=== PATIENT | male | born 1945 | race Caucasian/White ===

== ENCOUNTER → 2017-03-02 | Outpatient (CLI) | payer OTHER ==
[~2017-03-02] MED LIST: AMLODIPINE; CLOPIDOGREL; LEVOTHYROXIN0.025 MG; LOPRESSOR; PROZAC40 MG; XANAX 0.25 MG0.25 MG; ZOCOR 20 MG TAB20 M1; ZOFRAN4 MG PO; [UNRECOGNIZED DRUG - OTHER]
[2017-03-02 10:25] LABS: CALCIUM 9.3 mg/dL (8.5-10.1); CREATININE 0.8 mg/dL (0.7-1.3); POTASSIUM 4.5 mmol/L (3.5-5.1)
== END ==
LOC: CAT 06:47
PROVIDERS: Internal Medicine Cardiovascular Disease
DX: I71.4 Abdominal aortic aneurysm, without rupture (principal); I77.9 Disorder of arteries and arterioles, unspecified

== ENCOUNTER → 2017-03-16 | Outpatient (CLI) | payer OTHER ==
[~2017-03-16] VITALS: Ht 172.7 cm; Wt 61.2 kg
[~2017-03-16] MED LIST changes: +ASPIR 8181 MG PO; +ASPIRIN325 PO; +LEVOTHYROXINE 0.15MG PO; +LOPRESSOR25 PO; +NORCO 5-325 TA1 EACH PO; +NORVASC10 MG PO; +PLAVIX 75 MG TA75 M1 PO; -PROZAC40 MG; +PROZAC40 MG PO; +TOPROL XL25 MG PO; -XANAX 0.25 MG0.25 MG; +XANAX 0.25 MG0.25 MG PO; +ZOCOR20 MG PO
[2017-03-16 07:45] VITALS: BP 138/65
[2017-03-16 08:00] LABS: HEMATOCRIT 39.4 % (42.0-52.0); HEMOGLOBIN 13.1 gm/dL (14.0-18.0); MCH 32.2 pg (26.0-34.0); MCHC 33.1 g/dL (28.0-37.0); RBC 4.06 mil/uL (4.50-6.00); RDW 14.4 % (10.5-14.5); WBC 8.7 thou/uL (4.0-11.0)
[2017-03-16 08:08] LABS: CALCIUM 9.3 mg/dL (8.5-10.1); POTASSIUM 3.3 mmol/L (3.5-5.1)
== END ==
LOC: CATH 07:18
PROVIDERS: Internal Medicine Cardiovascular Disease
DX: I71.4 Abdominal aortic aneurysm, without rupture (principal); I12.9 Hypertensive chronic kidney disease with stage 1 through stage 4 chronic kidney disease, or unspecified chronic kidney disease; N18.9 Chronic kidney disease, unspecified; I25.10 Atherosclerotic heart disease of native coronary artery without angina pectoris; E03.8 Other specified hypothyroidism; I73.89 Other specified peripheral vascular diseases; Z86.12 Personal history of poliomyelitis; F17.210 Nicotine dependence, cigarettes, uncomplicated; Z86.73 Personal history of transient ischemic attack (TIA), and cerebral infarction without residual deficits; Z98.890 Other specified postprocedural states

== ENCOUNTER 2017-04-06 05:41 | Inpatient (IN) | payer OTHER ==
[2017-03-31 10:21] LABS: URINE BILIRUBIN NEGATIVE (Negative); URINE BLOOD NEGATIVE (Negative); URINE COLOR YELLOW; URINE GLUCOSE-RANDOM* NEGATIVE (Negative); URINE KETONES NEGATIVE (Negative); URINE LEUKOCYTES-REFLEX NEGATIVE (Negative); URINE PROTEIN (DIPSTICK) NEGATIVE (Negative); URINE UROBILINOGEN 0.2 E.U./dl (0.2-1.0)
[2017-03-31 10:25] LABS: HEMATOCRIT 42.2 % (42.0-52.0); MCH 32.1 pg (26.0-34.0); MCHC 33.1 g/dL (28.0-37.0); RBC 4.35 mil/uL (4.50-6.00); RDW 14.3 % (10.5-14.5); WBC 9.3 thou/uL (4.0-11.0)
[2017-03-31 10:38] LABS: APTT 27.9 Seconds (24.5-32.8); PROTIME 10.5 Seconds (9.3-11.4)
[2017-03-31 10:43] LABS: ALBUMIN 3.9 g/dL (3.4-5.0); CALCIUM 9.4 mg/dL (8.5-10.1); CREATININE 1.3 mg/dL (0.7-1.3); POTASSIUM 4.8 mmol/L (3.5-5.1); TOTAL BILIRUBIN 0.3 mg/dL (<0.1-1.0); TOTAL PROTEIN 7.6 g/dL (6.4-8.2)
[~2017-04-06] VITALS: Ht 172.7 cm; Wt 62.2 kg
[~2017-04-06 05:41] MED LIST changes: -LOPRESSOR25 PO; -NORCO 5-325 TA1 EACH PO
[2017-04-06 11:29] VITALS: BP 134/61
[2017-04-06 17:15] VITALS: BP 117/71
[2017-04-06 19:31] VITALS: BP 115/71
[2017-04-06 23:23] VITALS: BP 118/76
[2017-04-07 03:54] VITALS: BP 117/76
[2017-04-07 03:54] LABS: HEMATOCRIT 35.2 % (42.0-52.0); HEMOGLOBIN 11.7 gm/dL (14.0-18.0)
[2017-04-07 04:00] LABS: CALCIUM 8.6 mg/dL (8.5-10.1); POTASSIUM 5.2 mmol/L (3.5-5.1)
[2017-04-07 07:44] VITALS: BP 96/60
[2017-04-07 12:12] VITALS: BP 108/70
[2017-04-07] MEDS ORDERED: LOPRESSOR25 PO (12:59)
[2017-04-07 13:21] VITALS: BP 108/70
[2017-04-07] MEDS ORDERED: NORCO 5-325 TA1 EACH PO (13:35)
[2017-04-07 16:22] VITALS: BP 132/77
== END 2017-04-07 19:00 | disposition home or self-care (01) | DRG 301 ==
LOC: 2N 05:41 → TBA 05:41 → PRE 06:31 → 2N 17:14
PROVIDERS: Nurse Practitioner; Thoracic Surgery (Cardiothoracic Vascular Surgery)
PROC: 04JY3ZZ Inspection of Lower Artery, Percutaneous Approach (ICD-10-PCS; principal; 2017-04-06)
PROC: 4A133J1 Monitoring of Arterial Pulse, Peripheral, Percutaneous Approach (ICD-10-PCS; 2017-04-06)
PROC: 4A133B1 Monitoring of Arterial Pressure, Peripheral, Percutaneous Approach (ICD-10-PCS; 2017-04-06)
PROC: 03HY32Z Insertion of Monitoring Device into Upper Artery, Percutaneous Approach (ICD-10-PCS; 2017-04-06)
DX: I71.4 Abdominal aortic aneurysm, without rupture (principal); I10 Essential (primary) hypertension; I73.9 Peripheral vascular disease, unspecified; E78.5 Hyperlipidemia, unspecified; I65.29 Occlusion and stenosis of unspecified carotid artery; I25.10 Atherosclerotic heart disease of native coronary artery without angina pectoris; E03.9 Hypothyroidism, unspecified; Z86.73 Personal history of transient ischemic attack (TIA), and cerebral infarction without residual deficits; Z79.899 Other long term (current) drug therapy
CPT/HCPCS: 10081; 47375; 48888; 50010; 50101; 50386; 50455; 54118; 56524; 56526; 56527; 56531; 56668; 56760; 57093; 62110; 62900; 70005

== ENCOUNTER 2017-04-25 06:31 | Inpatient (IN) | payer OTHER ==
[~2017-04-25] VITALS: Ht 172.7 cm; Wt 69.0 kg
--- NOTE | ~2017-04-25 | O ---
[facility] [address] OPERATIVE REPORT Name: YRN DECKER Room #: 242-P ADM IN M.R.#: [id number] Admission: 04/25/17 Attend Phys: Rip Severino MD Discharge: Date of : 49 Report #: [id number] THIS REPORT FOR: //name// CC: Aleksandr Crawford MD [facility] Rip Severino DATE OF SERVICE: 04/25/2017 PREOPERATIVE DIAGNOSIS: Abdominal aortic aneurysm infrarenal. FINAL DIAGNOSES: Abdominal aortic aneurysm infrarenal and left iliofemoral artery occlusive disease. OPERATIVE PROCEDURE PERFORMED: 1. Open repair of infrarenal abdominal aortic aneurysm with 18 x 9 mm bifurcated Dacron graft utilizing a left aortofem and a right aortoiliac configuration. 2. Left common femoral artery endarterectomy. SURGEON: Rip Severino M.D. CHANNEL EXECUTIVE: Taya Alamo MD ANESTHESIA: General. OPERATIVE INDICATIONS: The patient is a 72-year-old gentleman who has recently presented with an asymptomatic abdominal aortic aneurysm greater than 5 cm in size. Approximately 3 weeks ago, we attempted to perform endovascular AAA repair; however, we were unable to pass sheaths up the femoral arteries. He is readmitted this time now and is brought to the operating room for abdominal aortic aneurysm repair. It should be noted the patient preoperatively did not complain of any symptoms of lower extremity claudication nor rest pain. OPERATIVE SUMMARY: The patient was brought to the operating room and placed on the OR table in supine position. After anesthesia was induced via the general endotracheal route and monitoring lines have been positioned, the patient was prepped and draped in sterile fashion with chlorhexidine. We made a midline celiotomy incision. We explored the abdominal cavity, ensured the NG tube was in the stomach, and palpated the liver until no masses. The gallbladder appeared to be normal. We mobilized the ligament of Treitz and then incised the retroperitoneum to expose the aneurysm. Appropriate retractors were replaced. We dissected around the common iliac vessels of both left and right side and controlled them with umbilical tapes. We then dissected the proximal neck and controlled it with an umbilical tape as well. We then gave 10,000 units of intravenous heparin. We clamped the iliac vessels and then the aorta just below [address] [address] OPERATIVE REPORT Name: YRN DEKCER EFREN Room #: 242-P [facility] IN .R.#: [id number] Admission: 04/25/17 Attend Phys: Rip Severino MD Discharge: Date of : 49 Report #: [id number] the renal arteries. The aneurysm was incised and an extensive mural thrombus was removed. We teed the aneurysm off close to the clamp on the aorta and we extended the incision distally to both of the iliac vessels. Extensive atherosclerotic plaque was present in these vessels as well as vessel wall calcification was quite extensive. We measured the graft size and selected 18 x 9 mm bifurcated graft. We cut it to the appropriate length and we sewed our proximal anastomosis with a 3-0 Prolene. Upon releasing the clamp, we placed several additional sutures to obtain hemostasis. There was a proximal lumbar vessel near the anastomosis that required several sutures for ligation. We then brought the graft down, measured it and cut the iliac limbs. We first performed our anastomosis to the right common iliac artery and this was done with 4-0 Prolene. We flushed this site and then de-aired it by back bleeding the iliac artery and then completed this anastomosis and reestablished flow to the right leg. No additional sutures were required and there was a very good Doppler signal present in the distal iliac artery. Next, we approached the left common iliac artery. This one was more heavily calcified and diseased. We performed a local endarterectomy at this site and we did achieve acceptable back bleeding and we performed this anastomosis. We again flushed the side both retrograde and antegrade and de-aired it and then allow flow down the left limb of the graft. We were unable to achieve a good Doppler signal in the distal iliac artery. No palpable femoral pulse was noted either. We had given protamine to reverse the heparin. We then proceeded with exposure of the left common femoral artery. We made an oblique incision over the old incision site from 3 weeks prior. We dissected down through dense tissue to reach the contents of the femoral sheath. We were able to expose the common femoral artery without injuring it. We identified the profunda femoral and the superficial femoral as well. We created a tunnel with blunt dissection and placed a separate piece of 9 mm graft into the tunnel. We then re-heparinized, we clamped the left limb of the aortobiiliac graft and then clamped the common iliac artery. We took down this old anastomosis and constructed a new anastomosis of a 9 mm graft to 9 mm graft using 4-0 Prolene. We oversewed the common iliac artery and tied it off with several 2-0 Prolene sutures. Once we established good flow to the groin site, we then opened up the common femoral artery. There was difficulty finding the lumen. We did perform a formal endarterectomy at this site. Lastly, we constructed the anastomosis of the 9 mm graft to the common femoral artery using 5-0 Prolene. Prior to completion, the site was flushed both retrograde and antegrade and de-aired by removing the distal clamp. We then completed the anastomosis and restored blood flow to the left leg. Good Doppler signals were present in the superficial femoral and profunda femoral arteries. Protamine was again given to reverse the heparin. We turned our attention back to the abdomen and obtained good hemostasis. We closed the aneurysm sac over the graft with #1 Vicryl. We closed the retroperitoneum with #1 Vicryl. We placed the intestinal contents, which looked to be in good health back into their anatomic position, cover them with the omentum and then closed the fascia with a #1 looped PDS. Subcutaneous tissues were irrigated and the skin was closed with a 4-0 Monocryl. The groin wound site was irrigated with saline solution and was closed in [address] [address] OPERATIVE REPORT Name: YRN DECKER Room #: 242-P [facility] IN ..#: [id number] Admission: 04/25/17 Attend Phys: Rip Severino MD Discharge: Date of : 49 Report #: [id number] multiple layers with absorbable suture. The procedure was completed. The patient was taken to the ICU in stable condition. The operative blood loss was approximately 850 mL, a portion of which was returned via the use of Cell Saver. <ELECTRONICALLY SIGNED> By: Rip Severino MD 04/26/17 0805 1733 1832 Rip Severino MD /glen
--- NOTE | ~2017-04-25 | S ---
[facility] [place] [address] SURGICAL PATH RPT PROCEDURE Name: YRN DECKER Room #: 211-P ADM IN M.R.#: [id number] Admission: 04/25/17 Date of : 49 Discharge: Report #: [id number] Path Case #: [id number] PATHOLOGY REPORT COLLECTION DATE: 04/26/2017 RECEIVED DATE: 04/26/2017 SUBMITTING PHYS: Dr. Rip Severino OTHER PHYS: Dr. Taya Alamo M.D. Dr. Aleksandr Velarde SPECIMEN(S) RECEIVED: A.Segment abdominal aorta * * * * * * * * * * * * FINAL DIAGNOSIS: Aorta, segment abdominal aorta, repair: - Calcification as well as fibrinoid degeneration, history of abdominal aortic aneurysm. (IUV:sylvie; 04/28/2017) PATHOLOGIST: Elise Guthrie M.D. REPORT ELECTRONICALLY SIGNED BY: Elise Guthrie M.D. DATE/TIME: 04/28/2017 15:40 * * * * * * * * * * * * GROSS PATHOLOGY: The specimen is received in formalin labeled "Yrn Decker, segment abdominal aorta". Received is a segment of light mandujano to dusky collier-mandujano friable possible vascular tissue measuring 6.7 x 4.5 x 2.8 cm in greatest dimensions. The specimen is submitted representatively in cassette A1. (CAA; 04/27/2017) CLINICAL HISTORY: AAA INITIAL CPT CODE(S): A; 94181 Professional services performed by [facility] at [facility] [address] [place] [address] Technical services performed by [facility] at [address] [place] [id number]. [facility] [address] [place] [address] SURGICAL PATH RPT PROCEDURE Name: YRN DECKER Room #: 211-P ADM IN M.R.#: [id number] Admission: 04/25/17 Date of : 49 Discharge: Report #: [id number] Path Case #: [id number] [address] PHONE: [phone] DIRECTOR: Neto Reinoso M.D. * * * END OF REPORT * * *
[~2017-04-25 06:31] MED LIST changes: +LOPRESSOR25 PO; +NORCO 5-325 TA1 EACH PO
[2017-04-25 11:52] VITALS: BP 138/71
[2017-04-25 16:16] LABS: POC BE -3 mmol/L (-2.0 to +3.0); POC CA IONIZED 4.5 mg/dL (4.5-5.3); POC FiO2 100 %; POC GLUCOSE 123 mg/dL (70-99); POC HCO3 23.8 mmol/L (22.0-26.0); POC HEMOGLOBIN 7.1 g/dL (14.0-18.0); POC POTASSIUM 3.4 mmol/L (3.5-5.1); POC SODIUM 143 mmol/L (136-145); POC pCO2 53.3 mmHg (35.0-45.0); POC pH 7.257 (7.360-7.450)
[2017-04-25 16:17] LABS: POC BE -2 mmol/L (-2.0 to +3.0); POC CA IONIZED 4.2 mg/dL (4.5-5.3); POC FiO2 100 %; POC GLUCOSE 154 mg/dL (70-99); POC HCO3 24.5 mmol/L (22.0-26.0); POC HEMOGLOBIN 11.6 g/dL (14.0-18.0); POC POTASSIUM 3.7 mmol/L (3.5-5.1); POC SODIUM 144 mmol/L (136-145); POC pCO2 54.1 mmHg (35.0-45.0); POC pH 7.264 (7.360-7.450)
[2017-04-25 16:46] LABS: ABG SAMPLE TYPE ARTERIAL; BE(vivo) -3.8 mmol/L (-2 to +3); HCO3 23.7 mmol/L (22.0-26.0); LACTATE 1.89 mmol/L (0.5-2.0); O2Hb 97.2 % (92.0-98.0); PCO2 54.2 mmHg (35.0-45.0); PO2 135.6 mmHg (80.0-100.0); STICK SITE LINE; pH 7.259 (7.360-7.450); sO2 98.3 % (92.0-98.0); tCO2 25.4 mmol/L (24.0-30.0)
[2017-04-25 16:47] LABS: TIDAL VOLUME 550 ml
[2017-04-25 19:16] LABS: ABG SAMPLE TYPE ARTERIAL; BE(vivo) -2.5 mmol/L (-2 to +3); HCO3 21.9 mmol/L (22.0-26.0); LACTATE 1.02 mmol/L (0.5-2.0); O2(CT) 15.7 mL/dL (15.0-23.0); PCO2 36.5 mmHg (35.0-45.0); PO2 224.9 mmHg (80.0-100.0); Pressure Support 8 cm H20; STICK SITE LINE; pH 7.396 (7.360-7.450); sO2 99.5 % (92.0-98.0)
[2017-04-25 20:08] LABS: ABG SAMPLE TYPE ARTERIAL; BE(vivo) -3.6 mmol/L (-2 to +3); Face Shield 50 %; HCO3 22.5 mmol/L (22.0-26.0); LACTATE 0.91 mmol/L (0.5-2.0); O2(CT) 15.7 mL/dL (15.0-23.0); O2Hb 96.6 % (92.0-98.0); PCO2 44.9 mmHg (35.0-45.0); PO2 114.9 mmHg (80.0-100.0); STICK SITE LINE; pH 7.318 (7.360-7.450); sO2 97.9 % (92.0-98.0); tCO2 23.9 mmol/L (24.0-30.0)
[2017-04-26 05:18] LABS: HEMATOCRIT 29.5 % (42.0-52.0); HEMOGLOBIN 10.3 gm/dL (14.0-18.0); MCH 32.8 pg (26.0-34.0); MCHC 34.9 g/dL (28.0-37.0); MCV 93.8 fL (80.0-100.0); RBC 3.14 mil/uL (4.50-6.00); WBC 8.8 thou/uL (4.0-11.0)
[2017-04-26 05:26] LABS: CALCIUM 7.3 mg/dL (8.5-10.1); CREATININE 0.8 mg/dL (0.7-1.3); MAGNESIUM 1.3 mg/dL (1.8-2.4); POTASSIUM 4.2 mmol/L (3.5-5.1)
[2017-04-26 15:30] VITALS: BP 83/54
[2017-04-26 19:51] VITALS: BP 91/55
[2017-04-26 23:35] VITALS: BP 109/66
[2017-04-27 04:10] VITALS: BP 174/85
[2017-04-27 07:45] VITALS: BP 140/79
[2017-04-27 11:47] VITALS: BP 153/92
[2017-04-27 15:14] VITALS: BP 161/90
[2017-04-27 19:33] VITALS: BP 167/90
[2017-04-28 03:16] VITALS: BP 159/88
[2017-04-28 06:09] LABS: HEMATOCRIT 35.2 % (42.0-52.0); HEMOGLOBIN 11.6 gm/dL (14.0-18.0)
[2017-04-28 06:21] LABS: CREATININE 0.9 mg/dL (0.7-1.3); POTASSIUM 3.5 mmol/L (3.5-5.1)
[2017-04-28 08:18] VITALS: BP 162/97
[2017-04-28 15:42] LABS: URINE BILIRUBIN NEGATIVE (Negative); URINE BLOOD 1+ (Negative); URINE COLOR YELLOW; URINE GLUCOSE-RANDOM* NEGATIVE (Negative); URINE KETONES 1+ (Negative); URINE LEUKOCYTES-REFLEX NEGATIVE (Negative); URINE PROTEIN (DIPSTICK) NEGATIVE (Negative); URINE SPECIFIC GRAVITY <= 1.005 (1.003-1.035); URINE UROBILINOGEN 0.2 E.U./dl (0.2-1.0)
[2017-04-28 15:54] LABS: CASTS None Seen /LPF (None Seen); CRYSTALS None Seen /LPF (None Seen); SQUAMOUS None Seen /LPF (0-3); URINE RBC 0-2 Rare /HPF (0-2); URINE WBC-REFLEX None Seen /HPF (0-5)
[2017-04-28 19:22] VITALS: BP 154/100
[2017-04-29 04:13] VITALS: BP 153/90
[2017-04-29 07:53] VITALS: BP 150/94
[2017-04-29 12:01] VITALS: BP 150/94
[2017-04-29 16:10] VITALS: BP 135/73
[2017-04-29 19:47] VITALS: BP 147/96
[2017-04-30 03:44] VITALS: BP 138/88
[2017-04-30 07:25] VITALS: BP 138/96
[2017-04-30 15:50] VITALS: BP 150/94
[2017-04-30 16:05] VITALS: BP 150/94
== END 2017-04-30 12:54 | disposition home health service (06) | DRG 269 ==
LOC: TBA 06:31 → ICU 06:31 → PRE 09:25 → ICU 16:36 → 2N 04-26 15:38
PROVIDERS: Internal Medicine Cardiovascular Disease; Nurse Practitioner; Thoracic Surgery (Cardiothoracic Vascular Surgery)
PROC: 04V03D6 (ICD-10-PCS; principal; 2017-04-25)
PROC: 04CL0ZZ Extirpation of Matter from Left Femoral Artery, Open Approach (ICD-10-PCS; 2017-04-25)
PROC: 30233N1 Transfusion of Nonautologous Red Blood Cells into Peripheral Vein, Percutaneous Approach (ICD-10-PCS; 2017-04-25)
PROC: 5A1935Z Respiratory Ventilation, Less than 24 Consecutive Hours (ICD-10-PCS; 2017-04-25)
DX: I71.4 Abdominal aortic aneurysm, without rupture (principal); I74.5 Embolism and thrombosis of iliac artery; I74.8 Embolism and thrombosis of other arteries; I25.10 Atherosclerotic heart disease of native coronary artery without angina pectoris; I10 Essential (primary) hypertension; E78.5 Hyperlipidemia, unspecified; E03.9 Hypothyroidism, unspecified; E78.00 Pure hypercholesterolemia, unspecified; E83.42 Hypomagnesemia; F41.9 Anxiety disorder, unspecified; F32.9 Major depressive disorder, single episode, unspecified; Z90.49 Acquired absence of other specified parts of digestive tract; Z71.6 Tobacco abuse counseling; Z91.09 Other allergy status, other than to drugs and biological substances
CPT/HCPCS: 10078; 10081; 48888; 50101; 50386; 50455; 51301; 52095; 54118; 56524; 56525; 56526; 56527; 56528; 56529; 57092; 57093; 62110; 62900; 65002; 65020; 65043; 65075; 65090; 65120; 83006

== ENCOUNTER 2017-10-10 06:32 | Observation (INO) | payer OTHER, SELFPAY ==
[~2017-10-10] VITALS: Ht 172.7 cm; Wt 66.0 kg
--- NOTE | ~2017-10-10 | EKG ---
[address] [address] ELECTROCARDIOGRAM REPORT Name: YRN DECKER Room #: REG Juan Ordonez#: [id number] Admission: 10/10/17 Attend Phys: Maksim Crawford MD, Discharge: Date of : 49 Report #: [id number] THIS REPORT FOR: //name// [facility] Test Date: 2017-10-10 Test Time: 12:48:19 Pat Name: YRN DECKER Department: Room: Gender: Seafood Team Member: Toby RIDDLE : 1945 Requested By: Maksim Crawford Order Number: [id number] MD: Pk Maldonado Measurements Intervals [place] Rate: 49 P: 31 [place]: 190 QRS: -58 QRSD: 102 T: 34 QT: 443 QTc: 400 Interpretive Statements Sinus bradycardia Left anterior fascicular block Compared to ECG 10/10/2017 07:11:55 Left anterior fascicular block now present Left-axis deviation no longer present Electronically Signed On 10-10-2017 14:04:31 ORDER CLERK by Pk Maldonado [email or web address] <ELECTRONICALLY SIGNED> By: Pk Maldonado MD 10/10/17 1404 1248 1248 Pk Maldonado MD /EPI
--- NOTE | ~2017-10-10 | EKG ---
[address] [address] ELECTROCARDIOGRAM REPORT Name: JERONIMOYRN EFREN Room #: 200-I [facility] M.R.#: [id number] Admission: 10/10/17 Attend Phys: Maksim Crawford MD, Discharge: Date of : 49 Report #: [id number] THIS REPORT FOR: //name// [facility] Test Date: 2017-10-11 Test Time: 06:02:22 Pat Name: YRN DECKER Department: Room: 200 I Gender: M Family Court Justice: GRq : 1945 Requested By: Maksim Crawford Order Number: [id number] MD: kP Maldonado Measurements Intervals [place] Rate: 48 P: 50 [place]: 195 QRS: -48 QRSD: 100 T: 49 QT: 439 QTc: 393 Interpretive Statements Sinus bradycardia Left anterior fascicular block Compared to ECG 10/10/2017 16:05:31 No significant changes Electronically Signed On 10-11-2017 7:49:03 COMPOSITION BOARD PRESS OPERATOR by Pk Maldonado [email or web address] <ELECTRONICALLY SIGNED> By: Pk Maldonado MD 10/11/17 0749 1 1 Pk Maldonado MD /DOREEN
--- NOTE | ~2017-10-10 | EKG ---
[place] [address] [facility] [place] [address] ELECTROCARDIOGRAM REPORT Name: YRN DECKER [id number] Admission: 10/10/17 Attend Phys: Maksim Crawford MD, Discharge: Date of : 49 Report #: [id number] THIS REPORT FOR: //name// [facility] Test Date: 2017-10-10 Test Time: 07:11:55 Pat Name: YRN DECKER Department: Room: Gender: Business Performance Analyst: Toby RIDDLE : 1945 Requested By: Maksim Crawford Order Number: [id number] MD: Leodan Cordero Measurements Intervals [employer] Rate: 44 P: 9 RI: 196 QRS: -38 QRSD: 104 T: 43 QT: 466 QTc: 399 Interpretive Statements Sinus bradycardia Probable left atrial enlargement Left axis deviation Compared to ECG 08/22/2011 18:43:09 Septal Q waves are no longer present Electronically Signed On 10-10-2017 7:54:55 FILLING CARRIER by Leodan Cordero [email or web address] <ELECTRONICALLY SIGNED> By: Leodan Cordero MD, [facility] 10/10/17 0754 0711 07 Leodan Cordero MD, [facility] /EPI
--- NOTE | ~2017-10-10 | D ---
[facility] [place] [address] DISCHARGE SUMMARY Name: YRN DECKER Room #: 200-I [facility] Abisai Ordonez#: [id number] Admission: 10/10/17 Attend Phys: Maksim Crawford MD, Discharge: 10/11/17 Date of : 49 Report #: [id number] THIS REPORT FOR: //name// CC: Aleksandr Crawford [facility] COURSE: A 72-year-old male admitted for cardiac catheterization and presumed intervention to the right coronary artery. He had been lost to followup with some accelerating anginal symptoms. Subsequently taken to the catheterization lab. The left system was mildly diseased. The RCA had an eccentric 80-90% proximal lesion. This was a dominant vessel and then the distal RCA ostial PDA lesion was also 90%. I placed a 3.0 x 15 medicated stent in the proximal RCA and postdilated to 3.3 mm. The distal stent was a 2.25 x 12 and that was post-dilated to 2.5. He tolerated this well without any hemodynamic compromise. He has done well postoperatively. He had renal arteries, which were previously stented and were widely patent. It was difficult to ____ significantly calcified femoral artery, but no groin hematoma. He is up and ambulating and doing well. His laboratory work, creatinine is 1.3, his H and H are 11.2 and 33.4. His troponin was 0.1 and not significant. He is doing well. He will be discharged to home. No lifting for 48 hours. No lying in tub, Jacuzzi or chin for a week. No MRI or dental work for 3 months. DISCHARGE MEDICATIONS: Full aspirin with clopidogrel 75 mg a day for 1 month and then decrease to a baby aspirin, albuterol, Colace as needed, atorvastatin, Flomax, Lopressor 25 b.i.d., Zoloft 50 mg a day, Xanax 0.25 p.r.n. and Ambien 5 mg at night p.r.n. Amlodipine will be held, we will discontinue him on the valsartan and we will discontinue the Norvasc. DISCHARGE DIAGNOSES: 1. Coronary artery disease, successful stent placement dominant right and successful placement to the ostial PDA, preserved LV function. 2. Hypertension. 3. Hypercholesterolemia. 4. Chronic obstructive pulmonary disease. 5. Anxiety. Thank you for asking me to assist in the care of this patient. <ELECTRONICALLY SIGNED> By: Maksim Crawford MD, [facility] 10/20/17 2136 0829 0903 Maksim Crawford MD, FAC /nt
--- NOTE | ~2017-10-10 | CATHLAB ---
[facility] [place] [address] INVASIVE PROCEDURE REPORT Name: YRN DECKER Room #: 200-I [facility] IN .R.#: [id number] Admission: 10/10/17 Attend Phys: Maksim Crawford, Discharge: 10/11/17 Date of : 49 Date of Service: 10/12/17 0153 Report #: [id number] THIS REPORT FOR: //name// APPROVED REPORT Patient Details Patient Status: Out-Patient Room #: The patient is a 72 year-old male Event Personnel Maksim Crawford Signal Operator Technical, Raghu Brewster RN, Serene Tapia Sandifer, David Monitor, Yogesh Sauceda RN tin can feeder Performed Left Heart Cath w/or w/o Coronaries [id number] [facility] Renal Bilateral Peripheral Angiography 3925273 CVRENALBIL ALYSHA Place w/wo Plasty Single PDA 167798 72611 Initial Mod Sed Same Phys/QHP Gr5y 864064 93965 Mod Sed Same Phys/QHP Ea 461508 Procedure Narrative The patient was brought electively to the Cardiac Catheterization Laboratory and was prepped and draped in a sterile manner. The Right Groin^ was infiltrated with 1% Lidocaine subcutaneous anesthesia. A PINNACLE 6FR Sheath #[id number] sheath was inserted into the RFA^. Coronary angiography was performed using coronary diagnostic catheters. The right coronary system was accessed and visualized with a JR 4 catheter. The left coronary system was accessed and visualized with a JL 4 catheter. The left ventricle was accessed and visualized with a Pigtail catheter. Left ventriculogram was performed in RAYA projection. Hemostasis was obtained with manual pressure following sheath removal without any complications. The patient tolerated the procedure well and there were no complications associated with the procedure. There was no hematoma. Intraoperative Conscious Sedation Sedation start time: 08:24 Case end Time: 09:29 Fentanyl 75.0 mcg Versed 2.0 mg Fluoro Time: 980.00 minutes Dose: 980 mGy Contrast Type and Amount: Visipaque 135 ml Hemodynamics [facility] [address] [address] INVASIVE PROCEDURE REPORT Name: YRN DECKER Room #: 200-I [facility] IN ..#: [id number] Admission: 10/10/17 Attend Phys: Maksim Crawford, Discharge: 10/11/17 Date of : 49 Date of Service: 10/12/17 0153 Report #: [id number] The aortic pressure is 147/71 mmHg with a mean of 99 mmHg. The left ventricular pressure is 145/-15 mmHg with a mean of mmHg. The left ventricular end diastolic pressure is 49 mmHg. PCI Technique Lesion Anticoagulation was achieved with Heparin. Percutaneous coronary intervention was performed on the proximal right coronary artery. A LAUNCHER 6FR BAM #[id number] Guide Catheter was used to engage the ostium. A Luge Wire .014 x 182CM #[id number] Interventional Guidewire was used to cross the lesion. BALLOON DILATION A Balloon catheter Sprinter OTW 2.5 x 15 #[id number] was inserted and inflated up to 14.00atm for 28seconds. STENT DEPLOYMENT A drug-eluting stent RESOLUTE OTW 3.0 X 15 #[id number] was inserted and inflated up to 14.00atm for 33seconds. Additional Inflation: 20.00atm for 26seconds. PCI Technique Lesion 2 Percutaneous Coronary Intervention was performed on the right posterior descending artery. A LAUNCHER 6FR BAM #[id number] Guide Catheter was used to engage the ostium. A Luge Wire .014 x 182CM #[id number] Interventional Guidewire was used to cross the lesion. Balloon Dilation A Balloon catheter Sprinter OTW 2.25 x 12 #[id number] was inserted and inflated up to 12.00atm for 27seconds. Stent Deployment A drug-eluting stent RESOLUTE OTW 2.25 X 12 #[id number] was inserted and inflated up to 18.00atm for 32seconds. Conclusion #1 successful PTCA stent drug-eluting proximal right coronary 90% lesion to 0% with a 30 by 15 resolute drug-eluting stent to 3.2 mm in size. #2 successful PTCA stent drug-eluting of the distal right ostial PDA with a 2-5 x 12 resolute drug-eluting stent 2.4 mm in size ROSENDO-3 flow #3 left main mild irregularity giving rise to LAD and circumflex #4 LAD proximal calcification moderate 30-40% proximal lesions diffusely disease and attenuated distal vessels #5 circumflex OM with a mid vessel lesion of 50-60% giving rise to [facility] [address] [place] [address] INVASIVE PROCEDURE REPORT Name: YRN DECKER Room #: 200-I [facility] IN M.R.#: [id number] Admission: 10/10/17 Attend Phys: Maksim Crawford, Discharge: 10/11/17 Date of : 49 Date of Service: 10/12/17152 Report #: [id number] small attenuated OM system distally #6 left and right renal arteries previously stented have evidence of mild in-stent restenosis a were selectively injected #7 hyperdynamic LV function EF 60-65% Recommendations and plan: Continue aggressive risk factor modification dual antiplatelet therapy. No lifting for 48 hours to line Swype or BookBottles for a week. No MRI or dental work for 3 months Transfer CCU in stable condition <ELECTRONICALLY SIGNED> By: Maksim Crawford MD, FACC 10/12/17152 2 2 Maksim Crawford MD, FACC /INF
--- NOTE | ~2017-10-10 | EKG ---
[address] [address] ELECTROCARDIOGRAM REPORT Name: YRN DECKER Room #: 200-I [facility] M.R.#: [id number] Admission: 10/10/17 Attend Phys: Maksim Crawford MD, Discharge: Date of : 49 Report #: [id number] THIS REPORT FOR: //name// [facility] Test Date: 2017-10-10 Test Time: 16:05:31 Pat Name: YRN DECKER Department: Room: 200 I Gender: M Wood Room Hand: Emiliano APPLE : 1945 Requested By: Maksim Crawford Order Number: [id number] MD: Leodan Cordero Measurements Intervals [place] Rate: 52 P: 21 OR: 202 QRS: -45 QRSD: 102 T: 45 QT: 433 QTc: 403 Interpretive Statements Sinus bradycardia Probable left atrial enlargement Left anterior fascicular block Compared to ECG 10/10/2017 12:48:19 No significant change was found Electronically Signed On 10-10-2017 17:08:32 BLENDER / COOK by Leodan Cordero [email or web address] <ELECTRONICALLY SIGNED> By: Leodan Cordero MD, [facility] 10/10/17 1708 1605 1605 Leodan Cordero MD, [facility] /EPI
[2017-10-10] MEDS ORDERED: ASPIR 8181 MG PO (07:11)
[2017-10-10] MEDS ORDERED: ATORVASTATIN CA40 MG PO (07:14)
[2017-10-10] MEDS ORDERED: LOPRESSOR25 PO (07:17)
[2017-10-10] MEDS ORDERED: SERTRALINE HCL50 MG PO (07:18)
[2017-10-10 07:19] VITALS: BP 118/58
[2017-10-10] MEDS ORDERED: FLOMAX0.4 MG PO (07:20)
[2017-10-10] MEDS ORDERED: DIOVAN320 MG PO (07:21)
[2017-10-10] MEDS ORDERED: AMBIEN 5 MG TABL5 M1 PO (07:23)
[2017-10-10 07:27] LABS: HEMATOCRIT 35.6 % (42.0-52.0); HEMOGLOBIN 11.9 gm/dL (14.0-18.0); MCH 31.8 pg (26.0-34.0); MCHC 33.4 g/dL (28.0-37.0); MCV 95.2 fL (80.0-100.0); RBC 3.74 mil/uL (4.50-6.00); WBC 8.5 thou/uL (4.0-11.0)
[2017-10-10 07:42] LABS: CALCIUM 8.9 mg/dL (8.5-10.1); CREATININE 1.9 mg/dL (0.7-1.3); POTASSIUM 4.8 mmol/L (3.5-5.1)
[2017-10-10 14:59] VITALS: BP 99/69
[2017-10-10 16:30] VITALS: BP 134/74
[2017-10-10 20:08] VITALS: BP 98/63
[2017-10-10 23:57] VITALS: BP 95/62
[2017-10-11 03:14] LABS: HEMATOCRIT 33.4 % (42.0-52.0); HEMOGLOBIN 11.2 gm/dL (14.0-18.0); MCH 32.1 pg (26.0-34.0); MCHC 33.6 g/dL (28.0-37.0); MCV 95.4 fL (80.0-100.0); RBC 3.5 mil/uL (4.50-6.00); RDW 13.9 % (10.5-14.5); WBC 8.8 thou/uL (4.0-11.0)
[2017-10-11 03:35] LABS: CALCIUM 8.7 mg/dL (8.5-10.1); CREATININE 1.3 mg/dL (0.7-1.3); POTASSIUM 5.1 mmol/L (3.5-5.1); TROPONIN-I 0.1 ng/mL (<0.06)
[2017-10-11 03:43] VITALS: BP 100/56
[2017-10-11 07:10] VITALS: BP 91/61
[2017-10-11] MEDS ORDERED: CLOPIDOGREL75 MG PO (07:48)
[2017-10-11] MEDS ORDERED: ASPIR 8181 MG PO (07:48)
[2017-10-11] MEDS ORDERED: DIOVAN320 MG PO (08:28)
[2017-10-11 08:41] VITALS: BP 91/61
== END 2017-10-11 10:15 | disposition home or self-care (01) ==
LOC: CATH 06:32 → 2N 14:44 → CATH 15:55 → 2N 10-11 10:15
PROVIDERS: Internal Medicine Cardiovascular Disease
DX: I25.10 Atherosclerotic heart disease of native coronary artery without angina pectoris (principal); I10 Essential (primary) hypertension; E78.00 Pure hypercholesterolemia, unspecified; J44.9 Chronic obstructive pulmonary disease, unspecified; F41.9 Anxiety disorder, unspecified; I77.9 Disorder of arteries and arterioles, unspecified; I73.9 Peripheral vascular disease, unspecified; I71.4 Abdominal aortic aneurysm, without rupture; E03.9 Hypothyroidism, unspecified; F17.210 Nicotine dependence, cigarettes, uncomplicated

== ENCOUNTER → 2018-07-25 | Outpatient (CLI) | payer OTHER, SELFPAY ==
[~2018-07-25] MED LIST changes: +AMBIEN 5 MG TABL5 M1 PO; +ATORVASTATIN CA40 MG PO; +CLOPIDOGREL75 MG PO; +DIOVAN320 MG PO; +FLOMAX0.4 MG PO; +SERTRALINE HCL50 MG PO
== END ==
LOC: ULTRA 08:30
DX: I77.9 Disorder of arteries and arterioles, unspecified (principal); I73.9 Peripheral vascular disease, unspecified; G45.9 Transient cerebral ischemic attack, unspecified; I10 Essential (primary) hypertension; E78.5 Hyperlipidemia, unspecified; I25.10 Atherosclerotic heart disease of native coronary artery without angina pectoris; Z86.79 Personal history of other diseases of the circulatory system; Z98.890 Other specified postprocedural states; Z87.891 Personal history of nicotine dependence

== ENCOUNTER → 2018-09-25 | Outpatient (CLI) | payer OTHER ==
[2018-09-25 07:29] LABS: CREATININE 1.3 mg/dL (0.7-1.3)
== END ==
LOC: ULTRA 06:57
PROVIDERS: Internal Medicine Cardiovascular Disease
DX: I71.4 Abdominal aortic aneurysm, without rupture (principal); I73.9 Peripheral vascular disease, unspecified; D73.89 Other diseases of spleen; Z98.890 Other specified postprocedural states; Z86.79 Personal history of other diseases of the circulatory system

== ENCOUNTER → 2018-09-27 | Outpatient (CLI) | payer OTHER, SELFPAY | LOC: NUC 08:57 | DX: I25.10 Atherosclerotic heart disease of native coronary artery without angina pectoris (principal); E78.5 Hyperlipidemia, unspecified; I10 Essential (primary) hypertension; Z87.891 Personal history of nicotine dependence ==

== ENCOUNTER → 2018-10-30 | Outpatient (CLI) | payer OTHER, SELFPAY | LOC: ULTRA 10-25 15:06 | DX: I72.4 Aneurysm of artery of lower extremity (principal); Z98.890 Other specified postprocedural states; Z86.79 Personal history of other diseases of the circulatory system ==

== ENCOUNTER → 2019-04-30 | Outpatient (CLI) | payer OTHER, SELFPAY | LOC: ULTRA 08:30 | DX: I73.9 Peripheral vascular disease, unspecified (principal); I71.4 Abdominal aortic aneurysm, without rupture ==

== ENCOUNTER → 2019-08-24 | Outpatient (CLI) | payer OTHER | LOC: ULTRA 14:05 | DX: M79.605 Pain in left leg (principal); M79.89 Other specified soft tissue disorders ==

== ENCOUNTER → 2019-11-13 | Outpatient (CLI) | payer OTHER | LOC: SJCVC 14:21 → SJCVCIMAG 14:21 | DX: I44.4 Left anterior fascicular block (principal); E78.00 Pure hypercholesterolemia, unspecified; I71.4 Abdominal aortic aneurysm, without rupture; I44.60 Unspecified fascicular block; R94.31 Abnormal electrocardiogram [ECG] [EKG]; I73.9 Peripheral vascular disease, unspecified; I25.10 Atherosclerotic heart disease of native coronary artery without angina pectoris; I70.1 Atherosclerosis of renal artery; F17.210 Nicotine dependence, cigarettes, uncomplicated; Z72.89 Other problems related to lifestyle; Z98.890 Other specified postprocedural states; Z86.79 Personal history of other diseases of the circulatory system ==

== ENCOUNTER → 2020-05-27 | Outpatient (CLI) | payer OTHER | LOC: SJCVCIMAG 07:58 | PROVIDERS: ATTEND Internal Medicine Cardiovascular Disease | DX: I65.23 Occlusion and stenosis of bilateral carotid arteries (principal); I49.3 Ventricular premature depolarization; I25.10 Atherosclerotic heart disease of native coronary artery without angina pectoris; I10 Essential (primary) hypertension; E78.00 Pure hypercholesterolemia, unspecified; F17.200 Nicotine dependence, unspecified, uncomplicated; Z98.890 Other specified postprocedural states; Z79.899 Other long term (current) drug therapy ==

== ENCOUNTER → 2021-01-01 | Outpatient (CLI) | payer OTHER | LOC: SJCVCIMAG 08:07 | PROVIDERS: ATTEND Internal Medicine Cardiovascular Disease | DX: I70.203 Unspecified atherosclerosis of native arteries of extremities, bilateral legs (principal); I70.8 Atherosclerosis of other arteries; I74.5 Embolism and thrombosis of iliac artery; R94.31 Abnormal electrocardiogram [ECG] [EKG]; R00.1 Bradycardia, unspecified; E78.00 Pure hypercholesterolemia, unspecified; I77.9 Disorder of arteries and arterioles, unspecified; I25.10 Atherosclerotic heart disease of native coronary artery without angina pectoris; I10 Essential (primary) hypertension; I65.23 Occlusion and stenosis of bilateral carotid arteries; E03.9 Hypothyroidism, unspecified; F17.210 Nicotine dependence, cigarettes, uncomplicated; Z79.899 Other long term (current) drug therapy; Z95.1 Presence of aortocoronary bypass graft; Z98.890 Other specified postprocedural states; Z86.79 Personal history of other diseases of the circulatory system; Z86.73 Personal history of transient ischemic attack (TIA), and cerebral infarction without residual deficits ==